=== PATIENT | female | born 1960 | race Caucasian/White ===

== ENCOUNTER 2020-02-27 17:13 | Emergency (ER) | payer OTHER ==
[~2020-02-27] VITALS: Ht 162.6 cm; Wt 64.4 kg
[2020-02-27 17:20] VITALS: BP_SYST 135
--- NOTE | 2020-02-27 17:20 | NUR ---
Patient to ER bed 07 to gown for evaluation. Side rails up.
--- NOTE | 2020-02-27 17:20 | NUR ---
CALL PLACED TO [facility] [phone] AND SPOKE WITH LEAD NURSE, I EXPLAINED TO HER THAT WE HAVE NO INFORMATION ON THIS PT AND IF I COULD GET REPORT, SHE STATES THAT PTS NURSE HAS GONE HOME FOR THE DAY. SHE HAD NO IDEA WHY THE PT WAS HERE BUT ASKED FOR FAX NUMBER AND SHE STATES SHE WILL FAX CHART.
--- NOTE | 2020-02-27 17:25 | NUR ---
Patient presented to ER for Medical clearance for [facility] admission. Patient A&Ox4, ambulatory to ER, dropped of at [facility] ER with personal belongings. Per [facility] report pat has aggressive behavior and hitting staff.
--- NOTE | 2020-02-27 17:30 | NUR ---
ER Dr. Desai at bedside examining patient.
[2020-02-27 17:48] LABS: BASOPHILS # (AUTO) 0.1 K/uL (0.0-0.2); BASOPHILS % (AUTO) 1.1 % (0.0-2.0); EOSINOPHILS # (AUTO) 0.4 K/uL (0.0-0.4); EOSINOPHILS % (AUTO) 3.5 % (0.0-4.0); HEMATOCRIT 37.6 % (36-48); HEMOGLOBIN 12.5 g/dL (12.0-16.0); LYMPHOCYTES # (AUTO) 2.1 K/uL (1.0-5.5); LYMPHOCYTES % (AUTO) 19.2 % (20.5-51.5); MEAN CORPUSCULAR HEMOGLOBIN 29 pg (27-31); MEAN CORPUSCULAR HGB CONC 33 % (32-36); MEAN CORPUSCULAR VOLUME 87 fL (79.0-98.0); MONOCYTES # (AUTO) 0.9 K/uL (0.0-1.0); MONOCYTES % (AUTO) 8.5 % (1.7-9.3); NEUTROPHILS # (AUTO) 7.5 K/uL (1.8-7.7); NEUTROPHILS % (AUTO) 67.7 % (40.0-70.0); PLATELET COUNT (AUTO) 300 K/uL (130-430); RED CELL DISTRIBUTION WIDTH 15.6 % (9.0-15.0)
--- NOTE | 2020-02-27 17:53 | NUR ---
Pt sitting in bed, no s/s of distress, cooperative with staff
[2020-02-27 18:03] LABS: ANION GAP 8 (5-15); CALCIUM 8.6 mg/dL (8.4-11.0); CHLORIDE 100 mmol/L (98-107); CREATININE 0.69 mg/dL (0.55-1.30); GLUCOSE 130 mg/dL (70-99); POTASSIUM 3.8 mmol/L (3.5-5.1); SODIUM SERUM 133 mmol/L (136-145); UREA NITROGEN, BLOOD 22 mg/dL (8-21)
[2020-02-27 18:04] LABS: GFR AFRICAN AMERICAN 112 mL/min (>90)
[2020-02-27 18:07] LABS: ALANINE AMINOTRANSFERASE 30 U/L (12-78); ALBUMIN 3.1 g/dL (3.4-4.8); ASPARTATE AMINOTRANSFERASE 17 U/L (10-37); CHOLESTEROL 175 mg/dL (<200); HDL CHOLESTEROL 40 mg/dL (>55); LDL CHOLESTEROL 96 mg/dL (<100); TOTAL BILIRUBIN 0.2 mg/dL (0.0-1.0); TRIGLYCERIDES 164 mg/dL (30-150)
[2020-02-27 18:11] LABS: ACETAMINOPHEN 1 ug/mL (1-30); ALCOHOL, BLOOD < 3 mg/dL (<10)
--- NOTE | 2020-02-27 18:16 | NUR ---
Patient to be transferred to [facility] . Is being transferred due to higher level of care. Receiving facility has accepting physician and available space. ER physician has signed transfer form. Patient or responsible democrat has agreed to transfer and signed form. Patient belongings inventoried and will be sent with patient. Copy of nursing notes, lab reports, EKG, Physicians Orders and X-rays to be sent with patient. Report called to Lori CASTLE at receiving facility. Receiving physician is Dr. Lopez. ambulance service has been called for transfer. ETA is 1 hour.
[2020-02-27 18:31] LABS: BILIRUBIN,URINE NEGATIVE (NEGATIVE); COLOR,URINE YELLOW (YELLOW); GLUCOSE,URINE NEGATIVE (NEGATIVE); KETONES,URINE NEGATIVE (NEGATIVE); LEUKOCYTE ESTERASE ,URINE 3+ (NEGATIVE); NITRITE, URINE NEGATIVE (NEGATIVE); PROTEIN URINE NEGATIVE (NEGATIVE); UROBILINOGEN,URINE 0.2 (0.2-1.0)
[2020-02-27 18:36] LABS: BLOOD, URINE TRACE (NEGATIVE)
[2020-02-27 18:37] LABS: CLARITY/URINE SLIGHTLY HAZY (CLEAR)
[2020-02-27 18:45] LABS: BARBITURATE, URINE NEGATIVE (NEG <=200); BENZODIAZEPINE, URINE POSITIVE (NEG <=150); CANNABINOID, URINE NEGATIVE (NEG <=50); COCAINE, URINE NEGATIVE (NEG <=150); METHAMPHETAMINES SCREEN,URINE NEGATIVE (NEG <=500); OPIATE, URINE NEGATIVE (NEG <=100); PHENCYCLIDINE SCREEN,URINE NEGATIVE (NEG <=25); UR TRICYCLIC ANTIDEPRESSANTS NEGATIVE (NEG <=300); URINE AMPHETAMINE NEGATIVE (NEG <=500); URINE METHADONE NEGATIVE (NEG <=200); URINE OXYCODONE SCREEN NEGATIVE (NEG <=100); URINE PROPOXYPHENE SCREEN NEGATIVE (NEG <=300)
[2020-02-27 18:46] LABS: BACTERIA,URINE FEW /HPF (None Seen); MUCUS,URINE None Seen /LPF (None Seen)
[2020-02-27 19:20] VITALS: BP_SYST 148
== END 2020-02-27 19:20 ==
LOC: SED 17:13 → STU 18:37 → UNDOADMIN 18:37 → STU 19:20
DX: S81.802A Unspecified open wound, left lower leg, initial encounter (principal); F20.9 Schizophrenia, unspecified; X58.XXXA Exposure to other specified factors, initial encounter; Y93.89 Activity, other specified; Y92.89 Other specified places as the place of occurrence of the external cause; Y99.8 Other external cause status
CPT/HCPCS: 36415; 80053; 80061; 80307; 81000; 83036; 85025; 86920; 87081; 87086; 99285; G0480; G0481; G0482; G0378

== ENCOUNTER 2020-03-12 17:45 | Inpatient (IN) | payer OTHER ==
[~2020-03-12] VITALS: Ht 162.6 cm; Wt 56.7 kg
[2020-03-12 17:45] VITALS: BP_SYST 136
--- NOTE | 2020-03-12 17:51 | NUR ---
CALL PLACED TO [facility] SPOKE WITH NETO, ASKED FOR REPORT. SHE STATES THAT PT IS NO LONGER APPROPRIATE FOR THEIR FACILITY. I EXPLAINED TO NETO THAT UNLESS SHE HAS A BED AT [facility], THAT SHE WOULD BE RETURNING TO THEIR FACILITY. NETO STATES THAT DR BAZZI THE PSYCHIATRIST WANTED HER TO COME TO OUR ER AND THAT IT WOULD HAVE TO BE CLEARED BY THEIR ADMISSION DIRECTOR FOR HER TO RETURN.
[2020-03-12] MEDS ORDERED: cefTRIAXone 1 GM IVPB PREMIX 50 ML IV ONE (18:30)
--- NOTE | 2020-03-12 18:30 | NUR ---
DR ANDREWS AT BEDSIDE TO ASSESS
[2020-03-12 19:24] LABS: BASOPHILS % (AUTO) 0.5 % (0.0-2.0); EOSINOPHILS # (AUTO) 0.4 K/uL (0.0-0.4); EOSINOPHILS % (AUTO) 4.4 % (0.0-4.0); HEMATOCRIT 37.9 % (36-48); HEMOGLOBIN 12.7 g/dL (12.0-16.0); LYMPHOCYTES # (AUTO) 2.1 K/uL (1.0-5.5); LYMPHOCYTES % (AUTO) 25.1 % (20.5-51.5); MEAN CORPUSCULAR HEMOGLOBIN 29 pg (27-31); MEAN CORPUSCULAR HGB CONC 34 % (32-36); MEAN CORPUSCULAR VOLUME 86 fL (79.0-98.0); MONOCYTES # (AUTO) 0.5 K/uL (0.0-1.0); MONOCYTES % (AUTO) 5.8 % (1.7-9.3); NEUTROPHILS # (AUTO) 5.4 K/uL (1.8-7.7); NEUTROPHILS % (AUTO) 64.2 % (40.0-70.0); PLATELET COUNT (AUTO) 258 K/uL (130-430); RED BLOOD CELL COUNT(AUTO) 4.41 MIL/uL (4.2-6.2); RED CELL DISTRIBUTION WIDTH 14.9 % (9.0-15.0); WHITE BLOOD COUNT (AUTO) 8.4 K/uL (4.8-10.8)
--- NOTE | 2020-03-12 19:26 | NUR ---
MEDICATED WITH ROCEPHIN. IV HL 20 GUAGE LT AC
[2020-03-12 19:31] LABS: CALCIUM 9.1 mg/dL (8.4-11.0); CREATININE 0.72 mg/dL (0.55-1.30); POTASSIUM 3.8 mmol/L (3.5-5.1)
--- NOTE | 2020-03-12 19:32 | NUR ---
ALERT, AGITATED, RESP UNLABORED, SKIN WARM AND DRY. COMMUNICATES FAST, DIFF TO UNDERSTAND, MANIC LIKE PRESENTATION. SHE HAS A LARGE WOUND TO HER RT CHIN/CALF WOUND APPEARS WITH GRANULATION, NO DRAINAGE OR ODOR. Addendum: 03/12/20 at 2112 by SDEDFS WOUND TO HER RT LOWER LEG,ORR, GRANULATION OBSERVED, NO BLEEDING OR DRAINAGE
[2020-03-12 19:37] LABS: ALBUMIN 3.4 g/dL (3.4-4.8); TOTAL BILIRUBIN 0.3 mg/dL (0.0-1.0)
--- NOTE | 2020-03-12 19:53 | NUR ---
DR FELIX IN TO ASSESS
[2020-03-12] MEDS ORDERED: HALOPERIDOL LACTATE 5 MG/ML VIAL IM ONE (20:15)
--- NOTE | 2020-03-12 20:31 | NUR ---
MEDICATED FOR AGITATION. TOLERATED WELL.
[2020-03-12] MEDS ORDERED: BACITRACIN 1 GM OINT TP ONE (21:15)
[2020-03-12 21:49] LABS: BILIRUBIN,URINE NEGATIVE (NEGATIVE); COLOR,URINE YELLOW (YELLOW); GLUCOSE,URINE NEGATIVE (NEGATIVE); KETONES,URINE NEGATIVE (NEGATIVE); LEUKOCYTE ESTERASE ,URINE 1+ (NEGATIVE); NITRITE, URINE NEGATIVE (NEGATIVE); PH,URINE 5.5 (5.0-8.0); PROTEIN URINE NEGATIVE (NEGATIVE); UROBILINOGEN,URINE 0.2 (0.2-1.0)
[2020-03-12 22:07] LABS: BLOOD, URINE TRACE (NEGATIVE)
[2020-03-12 22:08] LABS: CLARITY/URINE HAZY (CLEAR)
[2020-03-12 22:11] LABS: BACTERIA,URINE FEW /HPF (None Seen); RBC,URINE 0-3 /HPF (0-3); WBC,URINE 50-80 /HPF (0-3)
[2020-03-12 22:12] LABS: MUCUS,URINE None Seen /LPF (None Seen)
[2020-03-12] MEDS ORDERED: VANCOMYCIN HCL 1,000 MG in NS 250 ML IV ONE (22:30)
[2020-03-12 22:42] LABS: BENZODIAZEPINE, URINE POSITIVE (NEG <=150); OPIATE, URINE POSITIVE (NEG <=100); UR TRICYCLIC ANTIDEPRESSANTS POSITIVE (NEG <=300)
[2020-03-12 22:43] LABS: BARBITURATE, URINE NEGATIVE (NEG <=200); CANNABINOID, URINE NEGATIVE (NEG <=50); COCAINE, URINE NEGATIVE (NEG <=150); METHAMPHETAMINES SCREEN,URINE NEGATIVE (NEG <=500); PHENCYCLIDINE SCREEN,URINE NEGATIVE (NEG <=25); URINE AMPHETAMINE NEGATIVE (NEG <=500); URINE METHADONE NEGATIVE (NEG <=200); URINE OXYCODONE SCREEN NEGATIVE (NEG <=100); URINE PROPOXYPHENE SCREEN NEGATIVE (NEG <=300)
[2020-03-12] MEDS ORDERED: ceFAZolin SODIUM 1 GM in D5W 50 ML IV ONE (22:45)
--- NOTE | 2020-03-12 23:02 | NUR ---
DR SAMUELS IN TO ASSESS. PT CALM, EASILY AROUSED, RESP UNLABORED VANCOMYCIN IVPB INFUSION STARTED
[2020-03-12] MEDS ORDERED: VANCOMYCIN HCL 1000 MG/VIAL IV ONE (23:07)
--- NOTE | 2020-03-12 23:21 | NUR ---
Patient will be admitted to care of [facility]. Admitted to M/S unit. Will go to room 104A. Belongings list completed. Complete and up to date summary report printed. SBAR report to be given at bedside with opportunity for questions.
--- NOTE | 2020-03-12 23:30 | NUR ---
INITIAL NOTES PATIENT IS LAYING IN BED AND STABLE. NO S/S OF RESPIRATORY DISTRESS NOTED. CALL LIGHT IN REACH. BED IS LOCKED, ALARMED, AND AT THE LOWEST POSITION. FALL, SAFETY, ASPIRATION, AND RESPIRATORY PRECAUTIONS WILL BE IN PLACE THROUGHOUT THE SHIFT. PLAN OF CARE IS DISCUSSED WITH PATIENT.
[2020-03-12 23:32] VITALS: BP_SYST 119
[2020-03-12] MEDS ORDERED: NACL 0.9% 1,000 ML IV ONE (23:45)
[2020-03-12] MEDS ORDERED: traMADol HCL HCL 50 MG TABLET (ULTRAM) PO PRN ×2 (23:45)
[2020-03-12] MEDS ORDERED: ACETAMINOPHEN 325 MG TABLET PO PRN (23:45)
[2020-03-12] MEDS ORDERED: ONDANSETRON HCL 4 MG/2 ML VIAL IVP PRN (23:45)
[2020-03-12] MEDS: SILVER SULFADIAZINE 1%, 400 GM 400 GM CREAM.GM. TP SCH (23:45)
[2020-03-13] MEDS ORDERED: TEMAZEPAM 15 MG CAPSULE PO PRN
--- NOTE | 2020-03-13 00:25 | NUR ---
PATIENT AMBULATED TO THE RESTROOM. PATIENT TOLERATED WELL. PATIENT REPOSITION IN BED FOR COMFORT. NO S/S OF RESPIRATORY DISTRESS NOTED. CALL LIGHT IN REACH.
--- NOTE | 2020-03-13 00:30 | NUR ---
WOUND CARE PERFORMED AT THIS TIME. PATIENT TOLERATED WELL. NO S/S OF RESPIRATORY DISTRESS NOTED. CALL LIGHT IN REACH.
[2020-03-13 00:52] VITALS: BP_SYST 119
[2020-03-13] MEDS ORDERED: ceFAZolin SODIUM 1 GM VIAL ONE (01:20)
--- NOTE | 2020-03-13 02:25 | NUR ---
PATIENT AMBULATED TO THE RESTROOM. PATIENT TOLERATED WELL. PATIENT REPOSITION IN BED FOR COMFORT. NO S/S OF RESPIRATORY DISTRESS NOTED. CALL LIGHT IN REACH.
--- NOTE | 2020-03-13 04:02 | NUR ---
PATIENT IS SLEEPING IN BED AND STABLE. NO S/S OF RESPIRATORY DISTRESS NOTED. CALL LIGHT IN REACH.
--- NOTE | 2020-03-13 04:07 | NUR ---
CONSULTATION PAGED/CALLED Reason for Consultation: WOUND INFECTION Person Who was Notified: MAGAN Consulting Physician: Apron Trimmer Specialty: Ordering Physician:
--- NOTE | 2020-03-13 04:44 | NUR ---
CONSULT: CONSULT CALLED FOR DR. DURAN I SPOKE WITH MAGANLEO JAY REASON FOR CONSULT: DEPRESSION REQUESTING CONSULT: DR. SAMUELS TAMPER OPERATOR PHONE NUMBER: [phone]
--- NOTE | 2020-03-13 06:10 | NUR ---
CLOSING NOTES PATIENT IS STABLE AND LAYING IN BED. NO S/S OF RESPIRATORY DISTRESS NOTED. CALL LIGHT IN REACH. BED IS LOCKED, ALARMED, AND AT THE LOWEST POSITION. FALL, SAFETY, ASPIRATION, AND RESPIRATORY PRECAUTIONS HAS BEEN IN PLACE THROUGHOUT THE SHIFT. WILL CONTINUE TO MONITOR UNTIL REPORT IS ENDORSED TO AM NURSE BY BEDSIDE.
--- NOTE | 2020-03-13 07:20 | NUR ---
AM ROUNDS: PATIENT ON THE BED. IV FLUIDS RUNNING AT LEFT AC,DRESSING CLEAN AND DRY. WITH RIGHT KNEE WOUND,DRESSING INTACT. CALL LIGHT WITH IN REACH. BED ,LOCKED AT LOWEST POSITION. CONTINUE TO MONITOR.
--- NOTE | 2020-03-13 08:17 | NUR ---
Nutrition Update Daniel Scale 18 noted. Pt admitted for cellulitis Diet: Regular BMI: 21.6 kg/m2 RD to follow per nutrition care standards.
[2020-03-13 08:30] VITALS: BP_SYST 145
--- NOTE | 2020-03-13 09:00 | NUR ---
IV OUT: ACCIDENTAL PULLED OUT BY THE PATIENT. IV RE SITED USING G#20,CONTINUE IV FLUIDS AND IV ANTIBIOTIC GIVEN ORDERED.
[2020-03-13] MEDS: CEFAZOLIN 1 GM IVPB PREMIX 50 ML IV SCH ×2 (09:08→16:52)
[2020-03-13] MEDS: ENOXAPARIN SODIUM 40 MG/0.4 ML SYRINGE SUBCUT SCH (09:14)
[2020-03-13] MEDS: SILVER SULFADIAZINE 1%, 400 GM 400 GM CREAM.GM. TP SCH ×2 (09:16→21:06)
--- NOTE | 2020-03-13 11:00 | NUR ---
PSYCHE ROUNDS: PATIENT SEEN BY DR VICKERS WITH ORDERS,MAY GIVE ATIVAN PO,FIRST DOSE PRN FOR AGITATION/ANXIETY.
[2020-03-13] MEDS ORDERED: LORazepam 1 MG TABLET PO ONE (11:15)
--- NOTE | 2020-03-13 11:30 | NUR ---
WOUND CARE: CLEANSE WITH NS,PAT DRY.SILVADENE CREAM APPLIED TO WOUND BED,SURE PREP TO MYA WOUND AREA,COVERED WITH FOAM DRESSING.WRAPPED WITH KERLIX.
--- NOTE | 2020-03-13 12:00 | NUR ---
ID NEW ORDER: PATIENT SEEN BY DR ORANTES IN THE ROOM. WOUND RIGHT LOWER LEG SEEN BY ID,WITH ORDERS GIVE DIFLUCAN IVPB SCHEDULED.
[2020-03-13 13:13] VITALS: BP_SYST 157
[2020-03-13] MEDS: FLUCONAZOLE 100 mg/ NS 50 ML IV SCH (13:13)
[2020-03-13] MEDS: QUEtiapine FUMARATE 100 MG TABLET PO SCH ×2 (15:05→21:05)
--- NOTE | 2020-03-13 15:40 | NUR ---
Wound Evaluation: Wound Consult received from Dr. Adame. Thank you Dr. Adame for the consult. Patient received in a Radha bed, awake, alert, confused. Patient is unable to turn in bed independently. Daniel score is a 21. Past Medical History: Diabetes Mellitus, Schizoaffective disorder, Cellulitis, Schizophrenia. Recent labs: WBC 8.4, RBC 4.41, hemoglobin 12.7, hematocrit 37.9, ESR 33, BUN 22, creatinine 0.72, GFR 88, glucose 103. Microbiology: Blood culture results x2 in progress. Urine culture results in progress. MRSA screen results in progress. Leg wound culture results in progress. Intrinsic factors that delay wound healing: Diabetes Mellitus. Extrinsic factors that delay wound healing: Decreased mobility. Wound Assessment: 1. Right Anterior Wells: Venous insufficiency ulcer, present on admission. Wound bed has 85% pink tissue, 15% yellow tissue. No odor, scant yellow purulent drainage. Periwound intact. Surrounding tissue is erythematous, has non-pitting edema, and has calor. Wound measures 3.9 cm x 1.5 cm. Recommend: Cleanse wound with normal Saline. Apply SurePrep to noel-wound. Apply Venelex ointment to wound bed. Cover with 6x6 foam dressing in diagonal fashion. Perform wound care daily, and as needed for dressing soiling or dislodgment. 2. Right Anterior Wells, Inferior to Site 1: Venous insufficiency ulcer, present on admission. Wound bed has 50% yellow tissue, 50% pink tissue. No odor, no drainage. Periwound intact. Surrounding tissue is erythematous, has non-pitting edema, and has calor. Wound measures 9.5 cm x 3.4 cm. Recommend: Cleanse wounds with normal Saline. Apply SurePrep to noel-wounds. Apply Silver Sulfadiazine ointment to wound beds. Cover with non-adhesive 4x4 foam dressings. Wrap with tavo wrap. Perform wound care daily, and as needed for dressing soiling or dislodgment. Also recommend: Encourage and assist patient as needed with repositioning every two hours with pillow support, and off-load pressure areas with pillows for pressure re-distribution. Offload, elevate and float heel with pillows. Perform skin care and monitor skin integrity q shift. Use moisture barrier cream on buttocks, and other moisture susceptible areas qid and as needed for soiling.
--- NOTE | 2020-03-13 16:02 | NUR ---
DC Planning: Called [facility], # [phone], nurse is busy with other pt. she will call back to give further dcp assessment info.
--- NOTE | 2020-03-13 16:55 | NUR ---
RN ROUNDS: PATIENT SLEEPING DURING ROUNDS.NO PROBLEM.
[2020-03-13 17:57] VITALS: BP_SYST 119
--- NOTE | 2020-03-13 18:30 | NUR ---
END OF SHIFT: PATIENT ATE DINNER. IV FLUIDS RUNNING AT LEFT FOREARM INTACT.CALL LIGHT WITH IN REACH. BED LOCKED AT LOWEST POSITION. NOT IN ANY DISTRESS.
--- NOTE | 2020-03-13 19:30 | NUR ---
Opening notes Received report. Patient is walking around in room. Steady gait noted. No signs of distress noted. Breathing even and unlabored. IV patent and intact, infusing fluids. Provided patient with chocolate pudding per request. No other needs. Encouraged patient to call for help if assistance needed. Call light within reach. Safety precautions in place.
[2020-03-13 20:37] VITALS: BP_SYST 148
[2020-03-13] MEDS: VANCOMYCIN HCL 1,000 MG in NS 250 ML IV SCH (21:05)
[2020-03-13] MEDS: traZODone HCL 50 MG TABLET (DESYREL) PO SCH (21:05)
--- NOTE | 2020-03-13 21:23 | NUR ---
Medications given. Educated the action and side effects of medications. Patient verbalized understanding and tolerated well. Provided patient with apple juice. No other needs at this time. Patient walks around room at times, steady gait noted. Patient provided self care. Call light within reach. Safety precautions in place.
--- NOTE | 2020-03-13 22:27 | NUR ---
RN rounds Patient is asleep at this time. No signs of distress noted. Breathing even and unlabored. IV ABX infusing well. No needs. Call light with the patient. Safety precautions in place.
[2020-03-14] MEDS: CEFAZOLIN 1 GM IVPB PREMIX 50 ML IV SCH ×3 (00:12→17:12)
[2020-03-14] MEDS: LORazepam 1 MG TABLET PO PRN ×2 (00:13→23:10)
[2020-03-14 00:27] VITALS: BP_SYST 125
--- NOTE | 2020-03-14 00:33 | NUR ---
RN rounds Patient resting in bed. No signs of distress noted. Breathing even and unlabored. IV ABX infusing. Educated the action and side effects of medications. Provided patient with thelma jackson and kyugn per patient request. No other needs at this time. Call light with the patient. Safety precautions in place.
--- NOTE | 2020-03-14 02:05 | NUR ---
RN rounds Patient in and out of sleep. Patient ambulates to bathroom. No signs of distress noted. Breathing even and unlabored. No needs. Call light with the patient. Safety precautions in place.
--- NOTE | 2020-03-14 04:16 | NUR ---
RN rounds Patient is sleeping. No signs of distress noted. Breathing even and unlabored. No needs. Call light with the patient. Safety precautions in place.
[2020-03-14 06:20] LABS: CALCIUM 8.9 mg/dL (8.4-11.0); CREATININE 0.63 mg/dL (0.55-1.30); POTASSIUM 4.1 mmol/L (3.5-5.1)
--- NOTE | 2020-03-14 06:21 | NUR ---
Closing notes Patient is resting in bed. No signs of distress noted. Breathing even and unlabored. IV patent and intact, no signs of infiltration noted. All needs met throughout the shift. Dr. Marie at bedside and assessed patient. New orders input by MD. Call light with the patient. Safety precautions in place. Will endorse care to day shift RN.
[2020-03-14 06:37] LABS: BASOPHILS % (AUTO) 0.7 % (0.0-2.0); EOSINOPHILS # (AUTO) 0.4 K/uL (0.0-0.4); EOSINOPHILS % (AUTO) 7.2 % (0.0-4.0); HEMOGLOBIN 12.5 g/dL (12.0-16.0); LYMPHOCYTES # (AUTO) 1.8 K/uL (1.0-5.5); LYMPHOCYTES % (AUTO) 33.7 % (20.5-51.5); MEAN CORPUSCULAR HEMOGLOBIN 29 pg (27-31); MEAN CORPUSCULAR HGB CONC 34 % (32-36); MEAN CORPUSCULAR VOLUME 87 fL (79.0-98.0); MONOCYTES # (AUTO) 0.5 K/uL (0.0-1.0); MONOCYTES % (AUTO) 10.4 % (1.7-9.3); NEUTROPHILS # (AUTO) 2.5 K/uL (1.8-7.7); PLATELET COUNT (AUTO) 237 K/uL (130-430); RED BLOOD CELL COUNT(AUTO) 4.26 MIL/uL (4.2-6.2); RED CELL DISTRIBUTION WIDTH 15.1 % (9.0-15.0)
[2020-03-14 06:47] LABS: WHITE BLOOD COUNT (AUTO) 5.2 K/uL (4.8-10.8)
[2020-03-14] MEDS: QUEtiapine FUMARATE 100 MG TABLET PO SCH ×3 (08:37→20:34)
[2020-03-14] MEDS: VALPROIC ACID 250 MG CAPSULE (DEPAKENE) PO SCH ×2 (08:37→20:34)
[2020-03-14] MEDS: ENOXAPARIN SODIUM 40 MG/0.4 ML SYRINGE SUBCUT SCH (08:39)
[2020-03-14] MEDS: SILVER SULFADIAZINE 1%, 400 GM 400 GM CREAM.GM. TP SCH ×2 (08:39→21:00)
[2020-03-14 08:40] VITALS: BP_SYST 131
--- NOTE | 2020-03-14 08:40 | NUR ---
Routine Patient sitting on side of bed with no distress noted; denies any pain at this time. Scheduled medications given per order. Patient stable at this time.
--- NOTE | 2020-03-14 08:50 | NUR ---
Wound care Wound on right lower extremity cleansed with NS, covered with foam dressing and secured with tavo wrap. Patient tolerated well.
--- NOTE | 2020-03-14 10:20 | NUR ---
Routine Patient sitting on side of bed with no distress noted. Patient denies any pain. Patient stable at this time.
[2020-03-14] MEDS ORDERED: CHOLECALCIFEROL (VITAMIN D3) 2,000 UNIT TABLET PO ONE (11:00)
[2020-03-14] MEDS ORDERED: MULTIVITS,CA,MINERALS/IRON/FA 1 TABLET PO ONE (11:00)
--- NOTE | 2020-03-14 11:29 | NUR ---
Dietitian Recommendations * Recommend continue regular diet * Recommend provide César BID for pt to promote wound healing. César BID provides: 5 g protein, 160 kcals (unflavored) Please see Nutrition Assessment for details. KAT POLANCO
--- NOTE | 2020-03-14 12:00 | NUR ---
Wound Re-Evaluation: Wound Consult received from Dr. Adame. Thank you Dr. Adame for the consult. Patient received in a Radha bed, awake, alert, confused. Patient is unable to turn in bed independently. Daniel score is a 17. Past Medical History: Diabetes Mellitus, Schizoaffective disorder, Cellulitis, Schizophrenia. Microbiology: Blood culture results x2 in progress. Urine culture results in progress. Right Lower Extremity Wound culture results in progress. MRSA screen results negative. Leg wound culture results in progress. Intrinsic factors that delay wound healing: Diabetes Mellitus. Extrinsic factors that delay wound healing: Decreased mobility. Wound Assessment: 1. Right Anterior Wells: Venous insufficiency ulcer, present on admission. Wound bed has 90% pink tissue, 10% red tissue. No odor, no drainage. Periwound intact. Surrounding tissue is erythematous, has non-pitting edema, and has calor. Wound measures 3.7 cm x 1.3 cm. Recommend continue: Cleanse wound with normal Saline. Apply SurePrep to sara-wound. Apply Venelex ointment to wound bed. Cover with 6x6 foam dressing in diagonal fashion. Perform wound care daily, and as needed for dressing soiling or dislodgment. 2. Right Anterior Wells, Inferior to Site 1: Venous insufficiency ulcer, present on admission. Wound bed has 50% yellow tissue, 50% pink tissue. No odor, no drainage. Periwound intact. Surrounding tissue is erythematous, has non-pitting edema, and has calor. Wound measures 9.5 cm x 3.4 cm. Recommend continue: Cleanse wounds with normal Saline. Apply SurePrep to sara-wounds. Apply Silver Sulfadiazine ointment to wound beds. Cover with non-adhesive 4x4 foam dressings. Wrap with tavo wrap. Perform wound care daily, and as needed for dressing soiling or dislodgment. 3. Right Posterior Distal Calf: Chronic wound, present on admission. Wound bed has 100% brown scab. No odor, no drainage. Dry, stable. Sara-wound intact. Wound measures 1.2 cm x 1.2 cm. Recommend: No dressing needed. Continue to monitor site q shift. Also recommend continue: Encourage and assist patient as needed with repositioning every two hours with pillow support, and off-load pressure areas with pillows for pressure re-distribution. Offload, elevate and float heel with pillows. Perform skin care and monitor skin integrity q shift. Use moisture barrier cream on buttocks, and other moisture susceptible areas qid and as needed for soiling.
--- NOTE | 2020-03-14 12:15 | NUR ---
Routine Patient resting in bed with no distress noted. Ordered medications given. Patient stable.
[2020-03-14] MEDS: FLUCONAZOLE 100 mg/ NS 50 ML IV SCH (12:26)
--- NOTE | 2020-03-14 12:26 | NUR ---
Routine Scheduled IV abx given per order. Patient eating lunch while sitting on side of bed. Patient stable.
[2020-03-14 12:38] VITALS: BP_SYST 124
--- NOTE | 2020-03-14 14:28 | NUR ---
DC Planning: called [facility] # [phone], per Anusha, nurse on duty : the pt is a industrial engineer resident for many years. She has no personnel analyst, no family or conservator listed. The pt can make won decision. Informed her the plan to discharge pt back during weekend for wound care and abx. Anusha confirmed the facility can do IV ABX and wd care as needed. >> I requested TIN Watts to get the dcp order from dr. Adame. .
--- NOTE | 2020-03-14 15:17 | NUR ---
Routine Patient ambulating in room. Scheduled medication given per order. Patient stable.
--- NOTE | 2020-03-14 17:15 | NUR ---
Routine Scheduled IV abx given per order. Patient resting comfortably in bed, watching TV. Patient stable.
[2020-03-14 17:26] VITALS: BP_SYST 122
--- NOTE | 2020-03-14 18:55 | NUR ---
Routine Patient ambulating in room. Patient has been stable throughout shift.
--- NOTE | 2020-03-14 20:00 | NUR ---
Opening notes Pt AAOx3, VSS, afebrile. Pt denies pain. L. leg dressing C/D/I. Pt ambulates within her room, steady gait. Food/snacks given per pt request. Call light within reach. Bed maintained low, locked, siderails up x2. To monitor. Addendum: 03/15/20 at 0639 by Angy Antony RN Right leg dressing C/D/I.
[2020-03-14] MEDS: traZODone HCL 50 MG TABLET (DESYREL) PO SCH (20:35)
[2020-03-14] MEDS: VANCOMYCIN HCL 1,000 MG in NS 250 ML IV SCH (21:00)
[2020-03-14 21:49] VITALS: BP_SYST 136
--- NOTE | 2020-03-14 22:15 | NUR ---
Rounds Pt awake, restless, keeps walking by the door and asking for things. Ativan 1mg PO administered as needed. Pt provided bedtime snacks and assisted with gown. Pt thankful. Pt near nursing station for safety. Will continue to monitor.
--- NOTE | 2020-03-15 00:25 | NUR ---
Rounds Pt asleep, easily awakens, no s/s distress noted. IV antibiotic infusing at ordered rate L. FA clear and patent. Safety maintained. Will continue to monitor.
[2020-03-15 00:29] VITALS: BP_SYST 125
[2020-03-15] MEDS: CEFAZOLIN 1 GM IVPB PREMIX 50 ML IV SCH ×2 (00:35→08:16)
--- NOTE | 2020-03-15 02:20 | NUR ---
Rounds Pt asleep, no s/s distress or discomfort noted. Call light within reach. To monitor.
--- NOTE | 2020-03-15 04:40 | NUR ---
Rounds Pt asleep, respirations even and unlabored. Bed maintained low, locked, siderails up x2. Call light within reach. To monitor.
--- NOTE | 2020-03-15 06:20 | NUR ---
Closing notes Pt alert, awake, no s/s distress noted. Pt requested some snacks provided. IV TKO L.FA 20G no s/s infiltration. All needs met throughout the night. Call light within reach. Safety maintained. Bed low, locked, siderails up x2. To endorse to AM nurse. Addendum: 03/15/20 at 0638 by Angy Antony RN Dressing to right lower leg clean, dry intact.
--- NOTE | 2020-03-15 07:35 | NUR ---
INITIAL NOTE PT AWAKE, AMBULATING TO DOOR AND BACK TO BED. PT AMBULATES WITH STEADY GAIT. IV SALINE LOCKED. CALL LIGHT WITHIN REACH, BED IN LOW AND LOCKED POSITION.
[2020-03-15 08:00] VITALS: BP_SYST 146
[2020-03-15] MEDS: MULTIVITS,CA,MINERALS/IRON/FA 1 TABLET PO SCH (08:17)
[2020-03-15] MEDS: VALPROIC ACID 250 MG CAPSULE (DEPAKENE) PO SCH ×2 (08:17→21:49)
[2020-03-15] MEDS: QUEtiapine FUMARATE 100 MG TABLET PO SCH ×3 (08:17→21:48)
[2020-03-15] MEDS: CHOLECALCIFEROL (VITAMIN D3) 2,000 UNIT TABLET PO SCH (08:17)
[2020-03-15] MEDS: SILVER SULFADIAZINE 1%, 400 GM 400 GM CREAM.GM. TP SCH ×2 (08:17→21:00)
[2020-03-15] MEDS: ENOXAPARIN SODIUM 40 MG/0.4 ML SYRINGE SUBCUT SCH (08:18)
--- NOTE | 2020-03-15 09:30 | NUR ---
RN ROUNDS PT RESTING IN BED, NO ACUTE DISTRESS NOTED, BREATHING EVEN AND UNLABORED, IV ANTIBIOTICS INFUSING WELL.
[2020-03-15] MEDS: FLUCONAZOLE 100 mg/ NS 50 ML IV SCH (11:43)
--- NOTE | 2020-03-15 12:11 | NUR ---
REFUSED VITAL SIGNS PT RESTING IN BED, REFUSING VITAL SIGNS TO BE TAKEN AT THIS TIME. WILL REATTEMPT LATER
--- NOTE | 2020-03-15 14:11 | NUR ---
RN ROUNDS PT SITTING AT BEDSIDE. NO CHANGE IN ASSESSMENT. WILL CONTINUE TO MONITOR.
--- NOTE | 2020-03-15 15:58 | NUR ---
WOUND CARE EDUCATED PT ON PURPOSE OF WOUND CARE. PT VERBALIZED UNDERSTANDING. WOUND CARE DONE. PT DENIES ANY PAIN DURING OR AFTER WOUND CARE. REFER TO [facility] FOR TREATMENT.
[2020-03-15] MEDS ORDERED: INSULIN REGULAR, HUMAN 100 UNITS/ML, 10 ML VIAL (humuLIN R) SUBCUT PRN (16:00)
[2020-03-15] MEDS ORDERED: DEXTROSE 50% JECT 50 ML DISP.SYRIN IVP PRN (16:00)
[2020-03-15 16:10] VITALS: BP_SYST 138
--- NOTE | 2020-03-15 16:18 | NUR ---
CONSULTATION PAGED/CALLED Reason for Consultation: [] LEG ULCERATION Person Who was Notified: [] HUGO Consulting Physician: [] DR Mu BAUTISTA Police Officer Crime Prevention Specialty: [] GEN SURGEON Ordering Physician: [] DR SAMUELS
[2020-03-15] MEDS: cefTRIAXone 1 GM in D5W 50 ML IV SCH (16:41)
--- NOTE | 2020-03-15 18:03 | NUR ---
DR. BAUTISTA SPOKE WITH MD VIA PHONE, INFORMED MD THAT PT HAS WOUND ON RIGHT ORR, WOUND CARE TREATMENT WITH SILVER SULFADIAZINE. MD TO SEE PT TOMORROW. VERIFIED WITH READ BACK.
--- NOTE | 2020-03-15 18:52 | NUR ---
CLOSING NOTE PT AWAKE, AMBULATING TO DOOR AND BACK TO BED. PT AMBULATES WITH STEADY GAIT. IV SALINE LOCKED. CALL LIGHT WITHIN REACH, BED IN LOW AND LOCKED POSITION. ALL NEEDS MET THROUGHOUT SHIFT. WILL CONTINUE TO MONITOR UNTIL PT CARE IS ENDORSED TO SYSTEM SAFETY MANAGER RN.
--- NOTE | 2020-03-15 19:30 | NUR ---
OPENING NOTES RECEIVED SBAR REPORT FROM DAY SHIFT RN. PT AWAKE, ALERT & ORIENTED X 3. PT RESTING IN BED. PT AMBULATES WITH STEADY GAIT. IV SALINE LOCKED. CALL LIGHT WITHIN REACH, BED IN LOW AND LOCKED POSITION. CLOSE TO NURSING STATION. SAFETY AND CONTACT PRECAUTIONS IN PLACE. WILL CONTINUE TO MONITOR.
[2020-03-15 20:00] VITALS: BP_SYST 145
--- NOTE | 2020-03-15 20:40 | NUR ---
RECEIVED CRITICAL LABS RECEIVED CRITICAL LABS. PAGED DR. ARREOLA
--- NOTE | 2020-03-15 20:46 | NUR ---
SPOKE TO DR. ARREOLA SPOKE TO DR. ARREOLA REGARDING PT CRITICAL LABS. PT IS PLACED CONTACT ISOLATION.
[2020-03-15] MEDS ORDERED: VANCOMYCIN HCL 1,000 MG in NS 250 ML IV SCH (21:00)
[2020-03-15] MEDS: traZODone HCL 50 MG TABLET (DESYREL) PO SCH (21:48)
--- NOTE | 2020-03-15 21:48 | NUR ---
MEDICATION PASS SCHEDULED MEDICATIONS ADMINISTERED ORDERED. DISCUSSED MEDICATIONS ACTION AND POTENTIAL SIDE EFFECTS. ACCU-CHECK, BLOOD SUGAR OF 99. NO INSULIN COVERAGE PER SLIDING SCALE AT THIS TIME. PT DENIES ANY PAIN. BREATHING EVEN AND UNLABORED TO ROOM AIR. SAFETY AND CONTACT PRECAUTIONS IN PLACE. WILL CONTINUE TO MONITOR.
[2020-03-15] MEDS: LORazepam 1 MG TABLET PO PRN (23:01)
--- NOTE | 2020-03-15 23:05 | NUR ---
RN ROUNDS PT RESTING IN BED. BREATHING UNLABORED TO ROOM AIR. NO SIGNS AND SYMPTOMS OF ACUTE DISTRESS NOTED. PT AMBULATE STEADY. CALL LIGHT WITHIN REACH. BED LOCKED IN LOW, SIDE RAILS X2. SAFETY AND CONTACT PRECAUTIONS IN PLACE. WILL CONTINUE TO MONITOR.
[2020-03-16 00:55] VITALS: BP_SYST 104
--- NOTE | 2020-03-16 01:14 | NUR ---
RESTING PT RESTING IN BED. BREATHING UNLABORED TO ROOM AIR. NO SIGNS AND SYMPTOMS OF ACUTE DISTRESS NOTED. PT AMBULATE STEADY. CALL LIGHT WITHIN REACH. BED LOCKED IN LOW, SIDE RAILS X2. SAFETY AND CONTACT PRECAUTIONS IN PLACE. WILL CONTINUE TO MONITOR.
--- NOTE | 2020-03-16 03:30 | NUR ---
RN ROUNDS PT AWAKE, WALKING AROUND IN PT ROOM. PT AMBULATES STEADY. NO S/S OF ACUTE DISTRESS NOTED. PT GEN ANY PAIN AT THIS TIME. BREATHING EVEN AND UNLABORED TO ROOM AIR. CALL LIGHT WITHIN REACH. CLOSE TO NURSING STATION. SAFETY AND CONTACT PRECAUTIONS MAINTAINED. WILL CONTINUE TO MONITOR.
--- NOTE | 2020-03-16 05:25 | NUR ---
RN ROUNDS PT RESTING IN BED. NO S/S OF ACUTE DISTRESS NOTED. BREATHING EVEN AND UNLABORED TO ROOM AIR. CALL LIGHT WITHIN REACH. CLOSE TO NURSING STATION. SAFETY AND CONTACT PRECAUTIONS MAINTAINED. WILL CONTINUE TO MONITOR.
--- NOTE | 2020-03-16 06:28 | NUR ---
CLOSING NOTES PT RESTING IN BED. BLOOD SUGAR OF 107. NO INSULIN COVERAGE PER SLIDING SCALE AT THIS TIME. PT DENIES ANY PAIN AT THIS TIME. BREATHING EVEN AND UNLABORED TO ROOM AIR. IV SALINE LOCKED. CALL LIGHT WITHIN REACH, BED IN LOW AND LOCKED POSITION. CLOSE TO NURSING STATION. SAFETY AND CONTACT PRECAUTIONS IN PLACE. WILL CONTINUE TO MONITOR UNTIL ENDORSE TO DAY SHIFT RN.
[2020-03-16 08:00] VITALS: BP_SYST 127
[2020-03-16] MEDS: SILVER SULFADIAZINE 1%, 400 GM 400 GM CREAM.GM. TP SCH ×2 (08:55→20:54)
[2020-03-16] MEDS: VALPROIC ACID 250 MG CAPSULE (DEPAKENE) PO SCH ×2 (08:56→20:53)
[2020-03-16] MEDS: MULTIVITS,CA,MINERALS/IRON/FA 1 TABLET PO SCH (08:56)
[2020-03-16] MEDS: CHOLECALCIFEROL (VITAMIN D3) 2,000 UNIT TABLET PO SCH (08:56)
[2020-03-16] MEDS: QUEtiapine FUMARATE 100 MG TABLET PO SCH ×3 (08:56→20:53)
[2020-03-16] MEDS: ENOXAPARIN SODIUM 40 MG/0.4 ML SYRINGE SUBCUT SCH (08:59)
--- NOTE | 2020-03-16 09:30 | NUR ---
RN ROUNDS MORNING MEDICATIONS ADMINISTERED, PT COOPERATIVE AND FOLLOWING COMMANDS. WILL CONTINUE TO MONITOR.
[2020-03-16] MEDS: FLUCONAZOLE 100 mg/ NS 50 ML IV SCH (11:23)
--- NOTE | 2020-03-16 11:30 | NUR ---
RN ROUNDS PT AMBULATING INSIDE ROOM. PT KEEPING TO SELF, WITH MINIMAL OUTBURST. WILL CONTINUE TO MONITOR.
[2020-03-16 12:14] VITALS: BP_SYST 125
--- NOTE | 2020-03-16 13:00 | NUR ---
WOUND CARE PT REQUESTING TO HAVE WOUND CARE DONE. JASON CASTLE PERFORMED WOUND CARE ON PT. PER RN, PT TOLERATED WELL, COOPERATIVE AND FOLLOWED DIRECTIONS. REFER TO [facility] FOR TREATMENT.
--- NOTE | 2020-03-16 15:00 | NUR ---
RN ROUNDS SCHEDULED MEDICATIONS ADMINISTERED. PT COOPERATIVE, AND TOOK MEDICATIONS. PT AMBULATING INSIDE ROOM.
--- NOTE | 2020-03-16 15:10 | NUR ---
DR. BAUTISTA SPOKE WITH MD AT NURSE STATION, INFORMED MD THAT PT HAS SCHIZOAFFECTIVE DISORDER AND CAN BE SELECTIVE OF WHO SHE SPEAKS WITH. SHOWED MD WOUND PICTURES. MD TO CONTINUE CURRENT PLAN OF WOUND TREATMENT AND RECOMMEND WOUND VAC FOR PT. VERIFIED WITH READ BACK.
[2020-03-16 16:15] VITALS: BP_SYST 126
[2020-03-16] MEDS: cefTRIAXone 1 GM in D5W 50 ML IV SCH (17:01)
--- NOTE | 2020-03-16 17:15 | NUR ---
RN ROUNDS SCHEDULED MEDICATIONS ADMINISTERED. PT WOKE UP FROM NAP TALKING TO SELF. REORIENTED PT. PT COOPERATIVE AND ALLOWED FOR BSG TO BE TAKEN AND IV ANTIBIOTICS TO INFUSE. WILL CONTINUE TO MONITOR.
--- NOTE | 2020-03-16 18:19 | NUR ---
CLOSING NOTE INITIAL NOTE PT AWAKE SITTING AT EDGE OF BED EATING DINNER. IV SALINE LOCKED. CALL LIGHT WITHIN REACH, BED IN LOW AND LOCKED POSITION. ALL NEEDS MET THROUGHOUT SHIFT. ISOLATION PRECAUTIONS IN PLACE. WILL CONTINUE TO MONITOR UNTIL PT CARE IS ENDORSED TO RESEARCH RECRUITER RN.
[2020-03-16 20:00] VITALS: BP_SYST 139
--- NOTE | 2020-03-16 20:00 | NUR ---
INITIAL NOTE PT AWAKE SITTING AT EDGE OF BED. IV SALINE LOCKED. CALL LIGHT WITHIN REACH, EDUCATED PATIENT ON HOW TO USE CALL LIGHT. PATIENT DEMONSTRATED UNDERSTANDING. BED IN LOW AND LOCKED POSITION. BED ALARM OFF PATIENT AMBULATES FREQUENTLY. EDUCATED PATIENT TO CALL FOR ASSISTANCE IF NEEDED. PATIENT VERBALIZED UNDERSTANDING. ISOLATION PRECAUTIONS IN PLACE. WILL CONTINUE TO MONITOR.
--- NOTE | 2020-03-16 20:30 | NUR ---
Medication Pass Patient shouting, refusing medications at this time. Educated on importance of taking medications as ordered. Patient continues to refuse mediation and becoming more agitated. Will continue to monitor.
[2020-03-16] MEDS: traZODone HCL 50 MG TABLET (DESYREL) PO SCH (20:53)
[2020-03-16 23:11] VITALS: BP_SYST 113
--- NOTE | 2020-03-16 23:30 | NUR ---
Rounds Patient requesting snack at this time, provided snack and refilled water pitcher. Patient sitting in bed, consuming snack. Calm at this time. Will continue to monitor.
--- NOTE | 2020-03-17 02:30 | NUR ---
Rounds Patient awake, ambulated steadily to restroom. Patient voided with no complaints. Will continue to monitor.
--- NOTE | 2020-03-17 06:43 | NUR ---
Closing Note Accucheck done, no insulin needed. Patient awake, ambulating in room. No signs of distress noted. Safety precautions in place. Will continue to monitor until endorsed to am nurse. All needs met throughout shift.
[2020-03-17] MEDS: VALPROIC ACID 250 MG CAPSULE (DEPAKENE) PO SCH ×2 (08:40→21:39)
[2020-03-17] MEDS: QUEtiapine FUMARATE 100 MG TABLET PO SCH ×3 (08:41→21:39)
[2020-03-17] MEDS: CHOLECALCIFEROL (VITAMIN D3) 2,000 UNIT TABLET PO SCH (09:00)
[2020-03-17] MEDS: MULTIVITS,CA,MINERALS/IRON/FA 1 TABLET PO SCH (09:00)
[2020-03-17] MEDS: ENOXAPARIN SODIUM 40 MG/0.4 ML SYRINGE SUBCUT SCH (09:00)
--- NOTE | 2020-03-17 09:00 | NUR ---
ASSUMPTION OF CARE: RECEIVED PT A/A/CONFUSED, DX:RISK FOR FLUID VOLUME EXCESS, R/T RLL CELLULITIS, VSS, AFEBRILE, NO DISTRESS NOTED AT THIS TIME, PT IS DELUSIONAL, OBSERVED WHILE SHOUTING OUT OBSCENITIES, AND VOCALIZING NONSENSICAL CONVERSATION WHILE NO ONE ELSE PRESENT IN THE ROOM WITH HER. PT IS NONCOMPLIANT WITH MOST OF HER TREATMENT PLAN, DENIES HAVING PAIN OR DISCOMFORT IN INFECTED LEG, REFUSES EXAMINATION OF RLL EXTREMITY, IV SITE INTACT, PATENT, NO REDNESS OR SWELLING NOTED, UP OOB WITH STEADY GAIT, CALL LIGHT WITHIN REACH, ROOM CLOSE TO NURSES STATION, WILL CONT' TO MONITOR AND ASSESS.
--- NOTE | 2020-03-17 09:00 | NUR ---
ROUSTABOUT SUPERVISOR: MORNING MEDS GIVEN PER ORDERED BY Brando, TOLERATED WELL, WILL CONT' TO MONITOR AND ASSESS.
--- NOTE | 2020-03-17 10:56 | NUR ---
Nutrition F/U RD reviewed pt's current EMR including diet Hx, physician notes, nursing notes, pertinent labs/meds/procedures, care trends and care activity. Current Diet Order/Nutrition Support: Regular diet w/ César BID x 3 days Subjective information: Per RN, pt has excellent appetite and has been tolerating current diet order. Pt has been agitated and psychotic, shouting and kicking nursing staff this morning. Per EMR, abd is soft and nondistended, last BM 03/15 x1. Per outpatient dietitian, pt is requesting for Ensure w/ meals. RD noted elevated HbA1c 6.1 (03/12/20) and elevated BG and POC BG. Pt may benefit from CCHO diet w/ Glucerna TID. Pertinent Medications: seroquel, zinc, SSI, theragran-M, VIT D, lovenox, zofran Pertinent Labs: 03/14 BG 132H, 03/12 HbA1c 6.1H, POC BG 117H Skin Integrity Comment: Daniel score 21; Rush Seater's note: 1. Right anterior lowery: venous insuffciency ulcer, present on admission. 2. Right anterior lowery: Inferior to site 1: venous insufficiency ulcer, present on admission. Right Posterior Calf: chronic wound Current % PO Good (75-100%) x 4 days Estimated Energy Expenditure (kcals/day) 7762-9380 kcal/day (30-35 kcal/kg CBW for possible sepsis, wound healing) Estimated Protein Required (g/day) 86-114 g pro/day (1.5-2.0 g pro/kg CBW for possible sepsis, wound healing) Estimated Fluid Required (l/day) 5144-5606 ml/day (1ml/kcal for normal maintenance) Problem/Etiology/Signs/Symptoms Inadequate protein energy intake related to increased nutritional demands for sepsis and healing as evidenced by pt having possible sepsis and wounds per purchasing specialist's note. *ongoing Increased energy and protein needs r/t metabolic demands AEB presence of wound and sepsis. *new 03/17/2020 Altered nutrition related labs r/t endocrine dysfunction AEB elevated HbA1c and BG lab values. *new 03/17/2020 Expected Outcomes/Goals - Will monitor pt's diet tolerance with goal of pt continuing 90%-100% of estimated nutritional needs, labs trending WNL, normal GI function, skin integrity, and weight maintenance. Dietitian Recommendations * Recommend [facility] diet w/ Glucerna TID. ONS will provide additional 660 kcal and 30gm protein daily. * Continue César BID. Follow Up Low Risk: F/U in 7 days
--- NOTE | 2020-03-17 11:00 | NUR ---
VISIT: AT BEDSIDE FOR ASSESSMENT OF PT, NO NEW ORDERS AT THIS TIME, WILL CONT' WITH POC.
--- NOTE | 2020-03-17 11:05 | NUR ---
Dietitian Recommendations * Recommend [facility] diet w/ Glucerna TID. ONS will provide additional 660 kcal and 30gm protein daily. * Continue César BID. Please see Nutrition F/U note for details. KAT STOVALL
--- NOTE | 2020-03-17 11:30 | NUR ---
Discharge Planning: DCP faxed pt referral to [facility] (f [phone] p [phone]) DCP to follow up Addendum: 03/17/20 at 1344 by Linda Lunsford DP DCP followed up with Ya [phone] at [facility] (f [phone] p [phone]) per Sima this patient was going to [facility], Sima will call [facility].
--- NOTE | 2020-03-17 12:00 | NUR ---
GLUCOSE MONITORING: BLOOD SUGAR GVVAR=[id number], NO COVERAGE REQUIRED, TOLERATING DIET, WILL CONT' TO MONITOR AND ASSESS.
[2020-03-17 12:22] VITALS: BP_SYST 112
[2020-03-17] MEDS: LORazepam 2 MG/ML VIAL IVP PRN (13:26)
[2020-03-17] MEDS: FLUCONAZOLE 100 mg/ NS 50 ML IV SCH (13:26)
--- NOTE | 2020-03-17 13:40 | NUR ---
VISIT: AT BEDSIDE FOR ASSESSMENT OF PT, NO NEW ORDERS GIVEN AT THIS TIME, WILL CONT' TO MONITOR AND ASSESS.
--- NOTE | 2020-03-17 13:45 | NUR ---
Wound Care Planning: Dr. Rodrigues wants to place ACell on wounds and place a Prevena Wound VAC on the ACell and wound. The VAC must stay on for seven days and be reinforced prn, then it may be thrown away. This Wound Vac and ACell are specialty products and are in the process of approval and ordering. The patient may be discharged after the Prevena is placed.
--- NOTE | 2020-03-17 14:38 | NUR ---
Wound Re-Evaluation: Patient received in a Radha bed, awake, alert, confused. Patient is unable to turn in bed independently. Daniel score is a 21. Past Medical History: Diabetes Mellitus, Schizoaffective disorder, Cellulitis, Schizophrenia. Microbiology: Blood culture results x2 in progress. Urine culture results in progress. Right Lower Extremity Wound culture results positive for Morganella Morganii (LUMBER STRAIGHTENER) and Staphylococcus Aureus. Intrinsic factors that delay wound healing: Diabetes Mellitus. Extrinsic factors that delay wound healing: Decreased mobility. Wound Assessment: 1. Right Anterior Wells: Venous insufficiency ulcer, present on admission. Wound bed has 30% pink tissue, 70% yellow tissue. No odor, no drainage. Periwound intact. Surrounding tissue has less erythema, non-pitting edema, and has decreased calor. Wound measures 2.5 cm x 1.4 cm. Recommend continue: Cleanse wound with normal Saline. Apply SurePrep to sara-wound. Apply Venelex ointment to wound bed. Cover with 6x6 foam dressing in diagonal fashion. Perform wound care daily, and as needed for dressing soiling or dislodgment. 2. Right Anterior Wells, Inferior to Site 1: Venous insufficiency ulcer, present on admission. Wound bed has 60% yellow tissue, 40% pink tissue. No odor, no drainage. Periwound intact. Surrounding tissue has less erythema, non-pitting edema, and has decreased calor. Wound measures 9.0 cm x 3.4 cm. Recommend: Cleanse wounds with normal Saline. Apply SurePrep to sara-wounds. Apply Silver Sulfadiazine ointment to wound beds. Cover with Silver foam dressings. Wrap with tavo wrap. Perform wound care daily, and as needed for dressing soiling or dislodgment. 3. Right Posterior Distal Calf: Chronic wound, present on admission. Wound bed has 100% brown scab. No odor, no drainage. Dry, stable. Sara-wound intact. Wound measures 1.2 cm x 1.2 cm. Recommend continue: No dressing needed. Continue to monitor site q shift. Also recommend continue: Encourage and assist patient as needed with repositioning every two hours with pillow support, and off-load pressure areas with pillows for pressure re-distribution. Offload, elevate and float heel with pillows. Perform skin care and monitor skin integrity q shift. Use moisture barrier cream on buttocks, and other moisture susceptible areas qid and as needed for soiling. Wound Care Planning: Dr. Rodrigues wants to place ACell on wounds and place a Prevena Wound VAC on the ACell and wound. The VAC must stay on for seven days and be reinforced prn, then it may be thrown away. This Wound Vac and ACell are specialty products and are in the process of approval and ordering. The patient may be discharged after the Prevena is placed.
[2020-03-17] MEDS: SILVER SULFADIAZINE 1%, 400 GM 400 GM CREAM.GM. TP SCH ×2 (15:09→21:00)
--- NOTE | 2020-03-17 15:09 | NUR ---
Dc Planning: s/w Sima at [facility]: informed her the pt is not on 5150, no meet criteria for [facility] transfer. The pt has order to return to snf with wound care and IV abx. Per Sima: there is no bed for the pt today dt the pt's roommate need to be in isolation. She asked to call back tomorrow for bed availability. Sima gave additional information that the pt is homeless and may find other snf will be okay with her md as well. -- Ashlyn Lead TRAFFIC CIRCUIT ENGINEER and NANCI Mckeon made aware and will try to find other accepting nursing facility for back up.
[2020-03-17 16:30] VITALS: BP_SYST 116
--- NOTE | 2020-03-17 17:00 | NUR ---
GLUCOSE MONITORING: BLOOD SUGAR FAMTJ=[id number], NO COVERAGE REQUIRED, TOLERATING DIET, WILL CONT' TO MONITOR AND ASSESS.
[2020-03-17] MEDS: cefTRIAXone 1 GM in D5W 50 ML IV SCH (17:08)
--- NOTE | 2020-03-17 19:10 | NUR ---
Report received from day shift nurse. Pt is lying in bed without any distress noted. Skin is warm and dry to touch. No signs or symptoms of hypoglycemia or hyperglycemia noted. Saline lock in LFA noted without any signs of infiltration. Fall, contact isolation and safety precautions are in place. Direct Observer is in the room with pt.
[2020-03-17 20:00] VITALS: BP_SYST 112
[2020-03-17] MEDS: traZODone HCL 50 MG TABLET (DESYREL) PO SCH (21:39)
--- NOTE | 2020-03-17 21:39 | NUR ---
Accucheck 134 and no Insulin coverage needed. Skin remains warm and dry to touch. Pt declined HS snacks. Pt is cooperative, but irritable. Pt snatched her medication cup and water from RN, but swallowed her medications without any difficulty swallowing. Fall and safety precautions are in place.
--- NOTE | 2020-03-17 23:30 | NUR ---
Pt is sleeping quietly in bed. No respiratory distress noted. Fall and safety precautions are in place.
--- NOTE | 2020-03-18 01:35 | NUR ---
Pt is lying in bed awake and watching TV. No acute distress noted. Fall and safety precautions are in place.
--- NOTE | 2020-03-18 03:00 | NUR ---
Pt is sleeping in bed without any distress noted. Right leg dressing is dry and intact. Fall and safety precautions are in place.
--- NOTE | 2020-03-18 04:51 | NUR ---
Pt is asleep in bed. No acute distress noted at this time. Fall and safety precautions are in place.
--- NOTE | 2020-03-18 05:34 | NUR ---
Pt is awake and sitting on the edge of her bed. Dr. Marie is here to see pt.
--- NOTE | 2020-03-18 05:52 | NUR ---
Pt requested coffee and pudding. Pt agreed to have her blood sugar checked first. Accucheck 105 and skin remains warm and dry to touch. No Insulin coverage needed. Pt ate 2 cups of chocolate pudding and drank a cup of coffee with sugar substitute and creamer. No c/o pain or discomfort. Fall and safety precautions are in place. Rt leg dressing is dry and intact.
--- NOTE | 2020-03-18 07:15 | NUR ---
OPENING NOTES PT RESTING IN BED, CHEST RISE AND FALL NOTED. EASILY AWAKE, PT DENIES PAIN AND SOB AT THIS TIME. NONLABORED BREATHING NOTED ON ROOM AIR, O2 AT 96%. IV LINE INTACT AND PATENT, NO SIGNS OF INFILTRATION NOTED. NO ACUTE DISTRESS NOTED. BED LOCKED AND IN LOWEST POSITION. ALL NEEDS MET. CALL LIGHT IN REACH. FALL AND ASPIRATION PRECAUTIONS IN PLACE. CONTINUE TO MONITOR.
[2020-03-18 08:00] VITALS: BP_SYST 140
[2020-03-18] MEDS: QUEtiapine FUMARATE 100 MG TABLET PO SCH ×3 (08:30→21:24)
[2020-03-18] MEDS: MULTIVITS,CA,MINERALS/IRON/FA 1 TABLET PO SCH (08:30)
[2020-03-18] MEDS: CHOLECALCIFEROL (VITAMIN D3) 2,000 UNIT TABLET PO SCH (08:30)
[2020-03-18] MEDS: VALPROIC ACID 250 MG CAPSULE (DEPAKENE) PO SCH ×2 (08:30→21:24)
[2020-03-18] MEDS: ENOXAPARIN SODIUM 40 MG/0.4 ML SYRINGE SUBCUT SCH (08:31)
--- NOTE | 2020-03-18 08:40 | NUR ---
ROUTINE MEDS ROUTINE MEDS ADMINISTERED ORDERED PER MD, EDUCATION GIVEN, TOLERATED WELL. ALL NEEDS MET. CALL LIGHT IN REACH. CONTINUE TO MONITOR.
--- NOTE | 2020-03-18 09:00 | NUR ---
ASKED PT TO PERFORM WOUND CARE, PT AGITATED AND REFUSED AT THIS MOMENT. EDUCATED RISKS AND BENEFITS, ASKED THREE TIMES, PT CONTINUE TO REFUSE AT THIS TIME. WILL ASK AGAIN.
--- NOTE | 2020-03-18 11:37 | NUR ---
Discharge Planning: DCP spoke to Sima [phone] [facility] (f [phone] p [phone]) she is arranging a isolation room. DCP to follow up.
--- NOTE | 2020-03-18 12:00 | NUR ---
ATTEMPTED AT WOUND CARE AND ACCUCHECK WITH SECURITY ON STANDBY. PT YELLING AND REFUSED AT THIS TIME. WILL ASK AGAIN.
[2020-03-18 12:20] VITALS: BP_SYST 123
[2020-03-18] MEDS: FLUCONAZOLE 100 mg/ NS 50 ML IV SCH (12:41)
[2020-03-18] MEDS: SILVER SULFADIAZINE 1%, 400 GM 400 GM CREAM.GM. TP SCH ×2 (12:41→21:26)
[2020-03-18] MEDS: LORazepam 2 MG/ML VIAL IVP PRN ×2 (12:46→22:18)
--- NOTE | 2020-03-18 12:50 | NUR ---
WOUND CARE, ACCUCHECK, AND PRN ATIVAN ADMINISTERED ATIVAN ORDERED, PT AGITATED, TOLERATED WELL. PT ACCEPTED WOUND CARE, TOLERATED WELL. ACCUCHECK DONE, NO INSULIN COVERAGE NEEDED. ALL NEEDS MET. CALL LIGHT IN REACH. CONTINUE TO MONITOR.
--- NOTE | 2020-03-18 14:00 | NUR ---
ROUNDS PT SITTING UP IN BED, SPEAKING INCOHERENTLY. NO ACUTE DISTRESS NOTED. ALL NEEDS MET. CALL LIGHT IN REACH. CONTINUE TO MONITOR.
--- NOTE | 2020-03-18 16:00 | NUR ---
ROUNDS PT SITTING UP IN BED. NO ACUTE DISTRESS NOTED. ALL NEEDS MET. CALL LIGHT IN REACH. CONTINUE TO MONITOR.
[2020-03-18 16:22] VITALS: BP_SYST 134
[2020-03-18] MEDS: cefTRIAXone 1 GM in D5W 50 ML IV SCH (17:58)
--- NOTE | 2020-03-18 18:00 | NUR ---
ROUTINE MEDS ROUTINE MEDS ADMINISTERED ORDERED PER MD, EDUCATION GIVEN, TOLERATED WELL. CONTINUE TO MONITOR.
--- NOTE | 2020-03-18 18:45 | NUR ---
CLOSING NOTES PT AWAKE AND ALERT. NONLABORED BREATHING NOTED ON ROOM AIR. PT DENIES PAIN AND SOB AT THIS TIME. IV LINE INTACT AND PATENT, NO SIGNS OF INFILTRATION NOTED. NO ACUTE DISTRESS NOTED. BED LOCKED AND IN LOWEST POSITION. ALL NEEDS MET. CALL LIGHT IN REACH. FALL AND ASPIRATION PRECAUTIONS IN PLACE. WILL ENDORSE TO NOC NURSE.
--- NOTE | 2020-03-18 19:30 | NUR ---
OPENING NOTES RECEIVED SBAR REPORT FROM DAY SHIFT RN. PT RESTING IN BED, GEN ANY PAIN AT THIS TIME. BREATHING IS EVEN AND UNLABORED TO ROOM AIR. IV SITE INTACT, NO S/S OF INFILTRATION. CALL LIGHT WITHIN REACH. CLOSE TO NURSING STATION. BED LOCKED IN LOW. SAFETY AND CONTACT PRECAUTIONS MAINTAINED. WILL CONTINUE TO MONITOR.
[2020-03-18 20:00] VITALS: BP_SYST 133
[2020-03-18] MEDS: traZODone HCL 50 MG TABLET (DESYREL) PO SCH (21:24)
--- NOTE | 2020-03-18 21:24 | NUR ---
MEDICATION PASS SCHEDULED MEDICATIONS ADMINISTERED ORDERED. DISCUSSED MEDICATION ACTIONS AND POTENTIAL SIDE EFFECTS, BUT PT HAS POOR CONCENTRATION. PT GEN ANY PAIN OR SHORTNESS OF BREATH. IV SITE INTACT AND PATENT. CALL LIGHT WITHIN REACH. SAFETY AND CONTACT PRECAUTIONS MAINTAINED. WILL MONITOR.
--- NOTE | 2020-03-18 22:18 | NUR ---
AGITATED PT AGITATED. ADMINISTERED ATIVAN ORDERED PRN. PT TOLERATING WELL. NO S/S OF DISTRESS NOTED AT THIS TIME. BREATHING UNLABORED TO ROOM AIR. CLOSE TO NURSING STATION. SAFETY PRECAUTIONS MAINTAINED. WILL CONTINUE TO MONITOR.
[2020-03-18 23:59] VITALS: BP_SYST 106
--- NOTE | 2020-03-19 00:30 | NUR ---
RN ROUNDS PT RESTING IN BED WITH EYES CLOSED. ABLE TO SEE RISE AND FALL RESPIRATIONS. BREATHING UNLABORED TO ROOM AIR. NO SIGNS AND SYMPTOMS OF ACUTE DISTRESS NOTED AT THIS TIME. CALL LIGHT WITHIN REACH. BED LOCKED IN LOWEST LEVEL. SIDE RAILS X2. SAFETY AND CONTACT PRECAUTIONS IN PLACE. WILL CONTINUE TO MONITOR.
--- NOTE | 2020-03-19 02:22 | NUR ---
SLEEPING PT SLEEPING. BREATHING UNLABORED TO ROOM AIR. NO SIGNS AND SYMPTOMS OF PAIN NOTED AT THIS TIME. CALL LIGHT WITHIN REACH. BED LOCKED IN LOWEST LEVEL. SIDE RAILS X2. SAFETY AND CONTACT PRECAUTIONS IN PLACE. WILL CONTINUE TO MONITOR.
--- NOTE | 2020-03-19 04:39 | NUR ---
RN ROUNDS PT FALL ASLEEP. ABLE TO SEE RISE AND FALL RESPIRATIONS. BREATHING UNLABORED TO ROOM AIR. NO S/S OF DISTRESS NOTED. CALL LIGHT WITHIN REACH. SIDE RAILS X2. BED LOCKED IN LOWEST LEVEL. CLOSE TO NURSING STATION. SAFETY AND FALL PRECAUTIONS MAINTAINED. WILL CONTINUE TO MONITOR.
--- NOTE | 2020-03-19 06:46 | NUR ---
CLOSING NOTES PT RESTING IN BED, GEN ANY PAIN AT THIS TIME. BREATHING IS EVEN AND UNLABORED TO ROOM AIR. IV SITE INTACT, NO S/S OF INFILTRATION. CALL LIGHT WITHIN REACH. CLOSE TO NURSING STATION. BED LOCKED IN LOW. SAFETY AND CONTACT PRECAUTIONS MAINTAINED. WILL CONTINUE TO MONITOR UNTIL ENDORSE TO DAY SHIFT RN.
--- NOTE | 2020-03-19 07:15 | NUR ---
OPENING NOTES PT RESTING IN BED, CHEST RISE AND FALL NOTED. EASILY AWAKEN. NONLABORED BREATHING NOTED ON ROOM AIR, O2 AT 98%. PT DENIES PAIN AND SOB AT THIS TIME. IV LINE INTACT AND PATENT, NO SIGNS OF INFILTRATION NOTED. NO ACUTE DISTRESS NOTED. ALL NEEDS MET. CALL LIGHT IN REACH. BED LOCKED AND IN LOWEST POSITION. FALL AND ASPIRATION PRECAUTIONS IN PLACE. CONTINUE TO MONITOR.
[2020-03-19 08:00] VITALS: BP_SYST 119
[2020-03-19] MEDS: CHOLECALCIFEROL (VITAMIN D3) 2,000 UNIT TABLET PO SCH (08:56)
[2020-03-19] MEDS: MULTIVITS,CA,MINERALS/IRON/FA 1 TABLET PO SCH (08:56)
[2020-03-19] MEDS: QUEtiapine FUMARATE 100 MG TABLET PO SCH ×3 (08:56→21:47)
[2020-03-19] MEDS: VALPROIC ACID 250 MG CAPSULE (DEPAKENE) PO SCH ×2 (08:56→21:48)
[2020-03-19] MEDS: ENOXAPARIN SODIUM 40 MG/0.4 ML SYRINGE SUBCUT SCH (09:00)
[2020-03-19] MEDS: SILVER SULFADIAZINE 1%, 400 GM 400 GM CREAM.GM. TP SCH ×2 (09:00→21:48)
--- NOTE | 2020-03-19 09:00 | NUR ---
ROUTINE MEDS ROUTINE MEDS ADMINISTERED ORDERED PER MD, EDUCATION GIVEN, TOLERATED WELL. NO ACUTE DISTRESS NOTED. CONTINUE TO MONITOR.
--- NOTE | 2020-03-19 09:50 | NUR ---
WOUND CARE DONE, TOLERATED WELL. CONTINUE TO MONITOR.
--- NOTE | 2020-03-19 11:00 | NUR ---
ROUNDS PT SITTING UP IN BED, NONLABORED BREATHING NOTED. NO ACUTE DISTRESS NOTED. CALL LIGHT IN REACH. CONTINUE TO MONITOR.
[2020-03-19 12:23] VITALS: BP_SYST 119
--- NOTE | 2020-03-19 12:45 | NUR ---
PT IN BATHROOM, PT STATES TO COME BACK WHEN SHE IS FINISHED TO ADMINISTER MEDS. WILL COME BACK.
[2020-03-19] MEDS: FLUCONAZOLE 100 mg/ NS 50 ML IV SCH (13:33)
--- NOTE | 2020-03-19 13:33 | NUR ---
PT CAME OUT OF THE BATHROOM, ADMINISTERED PAIN MEDS ORDERED PER MD, EDUCATION GIVEN, TOLERATED WELL. PT YELLING OBSCENITIES, PROSTHETIC AIDE AT BEDSIDE WELL. ALL NEEDS MET. CALL LIGHT IN REACH. CONTINUE TO MONITOR.
--- NOTE | 2020-03-19 15:00 | NUR ---
ROUNDS PT SITTING UP IN BED WATCHING TELEVISION. NO ACUTE DISTRESS NOTED. CONTINUE TO MONITOR.
--- NOTE | 2020-03-19 16:10 | NUR ---
SPOKE TO DR. SAMUELS AT NURSES' STATION. NO NEW ORDERS RECEIVED.
[2020-03-19 16:30] VITALS: BP_SYST 117
[2020-03-19] MEDS: cefTRIAXone 1 GM in D5W 50 ML IV SCH (17:31)
--- NOTE | 2020-03-19 17:35 | NUR ---
ROUTINE MEDS ROUTINE MEDS ADMINISTERED ORDERED PER MD, EDUCATION GIVEN, TOLERATED WELL. CALL LIGHT IN REACH. CONTINUE TO MONITOR.
--- NOTE | 2020-03-19 18:24 | NUR ---
CLOSING NOTES PT AWAKE AND SITTING UP AT THE EDGE OF THE BED. NONLABORED BREATHING NOTED. PT DENIES PAIN AND SOB AT THIS TIME. NO ACUTE DISTRESS NOTED. IV LINE INTACT AND PATENT, NO SIGNS OF INFILTRATION NOTED. BED LOCKED AND IN LOWEST POSITION. ALL NEEDS MET. CALL LIGHT IN REACH. FALL AND ASPIRATION PRECAUTIONS IN PLACE. WILL ENDORSE TO NOC NURSE.
--- NOTE | 2020-03-19 19:30 | NUR ---
OPENING NOTES RECEIVED SBAR REPORT FROM DAY SHIFT RN. PT WALKING AROUND HER ROOM. NO S/S OF DISTRESS NOTED AT THIS TIME. BREATHING EVEN AND UNLABORED TO ROOM AIR. CALL LIGHT WITHIN REACH. CLOSE TO NURSING STATION. SAFETY AND CONTACT PRECAUTIONS MAINTAINED. WILL CONTINUE TO MONITOR.
[2020-03-19 20:00] VITALS: BP_SYST 144
[2020-03-19] MEDS: traZODone HCL 50 MG TABLET (DESYREL) PO SCH (21:47)
--- NOTE | 2020-03-19 21:48 | NUR ---
MEDICATION PASS SCHEDULED MEDICATIONS ADMINISTERED ORDERED. DISCUSSED MEDICATION ACTIONS AND SIDE EFFECTS BUT PT HAS POOR CONCENTRATION AT THIS TIME. PT GEN ANY PAIN AT THIS TIME. CALL LIGHT WITHIN REACH. SAFETY AND CONTACT PRECAUTIONS MAINTAINED. WILL CONTINUE TO MONITOR.
--- NOTE | 2020-03-20 00:05 | NUR ---
RN ROUNDS PT RESTING IN BED WITH EYES CLOSED, FALL ASLEEP. ABLE TO SEE RISE AND FALL RESPIRATIONS. BREATHING UNLABORED TO ROOM AIR. BED LOCKED IN LOWEST LEVEL. CALL LIGHT WITHIN REACH. SAFETY AND CONTACT PRECAUTIONS MAINTAINED. WILL CONTINUE TO MONITOR.
[2020-03-20 00:12] VITALS: BP_SYST 131
--- NOTE | 2020-03-20 02:15 | NUR ---
RESTING PT RESTING IN BED WITH EYES CLOSED, FALL ASLEEP. ABLE TO SEE RISE AND FALL RESPIRATIONS. BREATHING UNLABORED TO ROOM AIR. BED LOCKED IN LOWEST LEVEL. CALL LIGHT WITHIN REACH. SAFETY AND CONTACT PRECAUTIONS MAINTAINED. WILL CONTINUE TO MONITOR.
--- NOTE | 2020-03-20 04:30 | NUR ---
RN ROUNDS PT RESTING IN BED. BREATHING UNLABORED TO ROOM AIR. BED LOCKED IN LOWEST LEVEL. CALL LIGHT WITHIN REACH. SAFETY AND CONTACT PRECAUTIONS MAINTAINED. WILL CONTINUE TO MONITOR.
--- NOTE | 2020-03-20 06:50 | NUR ---
CLOSING NOTES PT RESTING IN BED. NO S/S OF DISTRESS NOTED AT THIS TIME. BREATHING EVEN AND UNLABORED TO ROOM AIR. CALL LIGHT WITHIN REACH. CLOSE TO NURSING STATION. SAFETY AND CONTACT PRECAUTIONS MAINTAINED. WILL CONTINUE TO MONITOR UNTIL ENDORSE TO DAY SHIFT RN.
--- NOTE | 2020-03-20 07:30 | NUR ---
OPENING NOTES: RECEIVED PATIENT FROM CASING INSPECTOR NURSE. PATIENT IS ASLEEP LAYING DOWN IN BED. PATIENT IS TOLERATING OXYGEN ON ROOM AIR WITH NO SIGNS OF DISTRESS OR SHORTNESS OF BREATH NOTED. IV SITE IS PATENT WITH NO SIGNS OF INFILTRATION NOTED. PATIENT IN STABLE CONDITION. SAFETY, FALL, ASPIRATION AND CONTACT PRECAUTIONS ARE IN PLACE. BED LOCKED IN LOWEST POSITION WITH CALL LIGHT IN REACH. WILL CONTINUE TO MONITOR PATIENT FOR ANY CHANGES.
[2020-03-20 08:00] VITALS: BP_SYST 146
[2020-03-20] MEDS: QUEtiapine FUMARATE 100 MG TABLET PO SCH ×4 (08:00→22:24)
[2020-03-20] MEDS: MULTIVITS,CA,MINERALS/IRON/FA 1 TABLET PO SCH (08:51)
[2020-03-20] MEDS: VALPROIC ACID 250 MG CAPSULE (DEPAKENE) PO SCH ×2 (08:51→21:00)
[2020-03-20] MEDS: CHOLECALCIFEROL (VITAMIN D3) 2,000 UNIT TABLET PO SCH (08:51)
[2020-03-20] MEDS: SILVER SULFADIAZINE 1%, 400 GM 400 GM CREAM.GM. TP SCH ×2 (08:51→21:00)
[2020-03-20] MEDS: ENOXAPARIN SODIUM 40 MG/0.4 ML SYRINGE SUBCUT SCH (08:53)
--- NOTE | 2020-03-20 10:18 | NUR ---
RN ROUNDS: PATIENT IS WASHING UP AT THE SINK. PATIENT REFUSES TO LET ME INSIDE THE ROOM. I ATTEMPTED TO ENTER AND SHE PUSHED THE DOOR ON ME. PATIENT IS YELLING AND CONFUSED. PATIENT AMBULATING STEADY. WILL ATTEMPT TO ENTER THE ROOM LATER.
--- NOTE | 2020-03-20 10:23 | NUR ---
Discharge Planning: DCP faxed pt referral to [facility] (f [phone] p [phone]) DCP to follow up Selene Velarde [phone] nicolette Chand not accepting patients at this time. Addendum: 03/20/20 at 1205 by Linda Lunsford DP DCDavide spoke to Marni at [facility] (f [phone] p [phone]) she stated the sister facility had a room- [address] [address] # to report [phone] Rm 8B. DCP made CM and nurse aware, transportation on WILL CALL with [facility] ([phone]). Pending wound vac placement, to be determined by doctor.
--- NOTE | 2020-03-20 10:41 | NUR ---
MEDICATIONS: PATIENT REFUSED TO TAKE HER MORNING SEROQUEL. PATIENT STATED IT GAVE HER A HEADACHE YESTERDAY. DR. SAMUELS MADE AWARE. PATIENT IN STABLE CONDITION. WILL CONTINUE TO MONITOR PATIENT FOR ANY CHANGES.
[2020-03-20] MEDS: FLUCONAZOLE 100 mg/ NS 50 ML IV SCH (12:30)
--- NOTE | 2020-03-20 12:40 | NUR ---
RN ROUNDS: PATIENT IS AWAKE AND YELLING WHILE LAYING DOWN IN BED. PATIENT REFUSED TO HAVE VITALS TAKEN AND YELLED FOR ME TO "GET THE HELL OUT OF HER ROOM". IV ANTIBIOTICS GIVEN AT THIS TIME. PATIENT DENIES ANY PAIN AT THE MOMENT. PATIENT IN STABLE CONDITION. WILL CONTINUE TO MONITOR PATIENT FOR ANY CHANGES.
--- NOTE | 2020-03-20 13:30 | NUR ---
IV INFILTRATED: PATIENT'S IV SITE BECAME INFILTRATED. IV ANTIBIOTIC WAS STOPPED. PATIENT REFUSED FOR ME TO TAKE OUT IV SITE. PATIENT YELLED FOR ME TO GET OUT AND FOLLOWED AFTER ME TOWARD THE DOOR AND SLAMMED IT SOON I GOT OUT. WILL CONTINUE TO MONITOR PATIENT FOR ANY CHANGES. Addendum: 03/20/20 at 1533 by Lady Mayorga RN UNABLE TO INSERT NEW IV SITE DUE TO PATIENT NOT ALLOWING ME TO STAY IN THE ROOM. WILL ATTEMPT AT A LATER TIME.
--- NOTE | 2020-03-20 14:34 | NUR ---
RN ROUNDS: PATIENT IS AWAKE AND YELLING IN HER ROOM. PATIENT TOLERATING OXYGEN ON ROOM AIR WITH NO SIGNS OF DISTRESS OR SHORTNESS OF BREATH NOTED. PATIENT YELLED FOR ME TO GET OUT. PATIENT IN STABLE CONDITION. WILL CONTINUE TO MONITOR PATIENT FOR ANY CHANGES.
--- NOTE | 2020-03-20 14:59 | NUR ---
Discharge Barriers: Pending Dr Rodrigues to schedule the procedure for R leg ulcer and will need consent for Incision debridement and culture with possible application of wound vac Prevena and acell options. >> I spoke with Heather/admin assistance : saidBrynNyla DAV already signed approval for the Acell dressing and Wd Vac. I LVM /notified to Scotty, wound care nurse. TIN Narayanan and NEVAEH Garrett made aware. I requested RN to f/u with dr. Rodrigues for the surgery plan/scheduling and order. >> Dr Adame made aware of the above info and [facility] accepted and has room available for the pt. The md said pt can transfer to snf after the procedure.
--- NOTE | 2020-03-20 16:20 | NUR ---
RN ROUNDS: PATIENT IS AWAKE AND ALERT x2 LAYING DOWN IN BED. PATIENT REFUSED FOR ME TO TAKE HER VITALS AND FOR ME TO ATTEMPT TO PUT A NEW IV SITE IN. PATIENT STARTED YELLING AND CUSSING AT ME AND STATED "GET THE HELL OUT OF MY ROOM, DUMB ASS". PATIENT IS TOLERATING OXYGEN ON ROOM AIR WITH NO SIGNS OF DISTRESS OR SHORTNESS OF BREATH NOTED. PATIENT IN STABLE CONDITION. WILL CONTINUE TO MONITOR PATIENT FOR ANY CHANGES.
[2020-03-20] MEDS: cefTRIAXone 1 GM in D5W 50 ML IV SCH (17:00)
--- NOTE | 2020-03-20 17:15 | NUR ---
MEDICATIONS PASS: PATIENT IS AWAKE AND ALERT x2 LAYING DOWN IN BED. PATIENT REFUSED TO TAKE HER MEDICATIONS AND REFUSED FOR ME TO ATTEMPT TO PUT A NEW IV IN FOR HER ANTIBIOTICS. PATIENT BEGAN SCREAMING AND CURSING AT ME AND DEMANDED FOR ME TO LEAVE HER ROOM. I TURNED TO WALK OUT AND PATIENT SAT UP FROM HER BED AND BEGAN TO FOLLOW ME TO THE DOOR AND SLAMMED IT ONCE I WALKED OUT. PATIENT IN STABLE CONDITION. WILL CONTINUE TO MONITOR PATIENT FOR ANY CHANGES.
--- NOTE | 2020-03-20 18:23 | NUR ---
paged paged for Dr Rodrigues, dialed . s/w Lemuel
--- NOTE | 2020-03-20 18:30 | NUR ---
SPOKE WITH DR. BAUTISTA: DR. BAUTISTA RETURNED MY CALL. ASKED HIM WHAT HIS PLAN FOR PATIENT IS. HE STATED HE WANTS TO DO A DEBRIDEMENT AND PUT SOMETHING ON FOR SEVEN DAYS TO HELP THE WOUND HEAL BUT CAN NOT DO SO UNTIL HER MENTAL STATUS IS STABILIZED. INFORMED MD THAT SHE HAS BEEN REFUSING HER PSYCH MEDICATIONS TODAY AND REFUSED TO HAVE A NEW IV PUT IN FOR HER ANTIBIOTICS. DR. BAUTISTA WANTS US TO LET DR. DURAN KNOW WHEN HE COMES TO SEE HER NEXT.
--- NOTE | 2020-03-20 18:39 | NUR ---
CLOSING NOTES: PATIENT IS AWAKE AND ALERT x1 PACING AROUND IN HER ROOM. PATIENT IS TOLERATING OXYGEN ON ROOM AIR WITH NO SIGNS OF DISTRESS OR SHORTNESS OF BREATH NOTED. IV SITE IN LEFT FOREARM IS INFILTRATED. PATIENT REFUSED TO LET ME TAKE IV CATHETER OUT AND PUT A NEW ONE IN. WILL ENDORSE TO GENERAL OPERATIONS MANAGER NURSE TO SEE IF SHE WILL LET THEM. PATIENT IN STABLE CONDITION. SAFETY, FALL, ASPIRATION AND CONTACT PRECAUTIONS REMAINED IN PLACE THROUGHOUT THE SHIFT. BED LOCKED IN LOWEST POSITION WITH CALL LIGHT IN REACH. WILL ENDORSE PATIENT CARE TO ONCOMING GENERAL OPERATIONS MANAGER NURSE.
--- NOTE | 2020-03-20 20:00 | NUR ---
AWAKE, ALERT. LOUD. SHOUTING OBSCENITIES. HOSTILE. NON-COMPLIANT. TANGENTIAL. REFUSED VITAL SIGNS TO BE TAKE.
--- NOTE | 2020-03-20 21:30 | NUR ---
STILL LOUD. REFUSED MEDS. WAS FINALLY CONVINCED TO TAKE SOME MEDS, SELECTIVE COMPLIANCE. CONTACT ISOLATION OBSERVED.
[2020-03-20] MEDS: traZODone HCL 50 MG TABLET (DESYREL) PO SCH (22:23)
--- NOTE | 2020-03-21 | NUR ---
DOZES ON AND OFF. STILL LOUD, TALKING TO SELF.
--- NOTE | 2020-03-21 03:00 | NUR ---
SLEPT INTERMITTENTLY. HALLUCINATES. LOUD VOICE NOTED.
--- NOTE | 2020-03-21 05:40 | NUR ---
DR DURAN HERE. UPDATED ON STATUS. NEW ORDERS TO BE GIVEN PER DR DURAN.
--- NOTE | 2020-03-21 06:00 | NUR ---
SLEPT ON AND OFF. REMAINS IN GUARDED CONDITION.
[2020-03-21 08:00] VITALS: BP_SYST 149
--- NOTE | 2020-03-21 08:00 | NUR ---
am notes received pt in bed. a/ox1. pt is yelling and confused.res even and unlabored. notin acute distress.vitals stable. siting in chair eating breakfast. safety /fall and contact precautions in place. call light within reach. kept comfortable.will continue to monitor
[2020-03-21] MEDS ORDERED: VALPROIC ACID 250 MG CAPSULE (DEPAKENE) PO SCH (09:00)
--- NOTE | 2020-03-21 09:30 | NUR ---
meds went in side to room to give meds. pt is in bathroom .yelling out.pt refused meds at this time. pt stated get out from here.i am busy.will try to give meds again.
--- NOTE | 2020-03-21 09:49 | NUR ---
DC Barriers: Pending 1. Acell dressing and wd vac. placement. Per TIN Narayanan's note: DR. BAUTISTA CAN NOT DO SO UNTIL HER MENTAL STATUS IS STABILIZED. THE PT. HAS BEEN REFUSING HER PSYCH MEDICATIONS AND REFUSED TO HAVE A NEW IV PUT IN FOR HER ANTIBIOTICS. 2. Scotty/wound care nurse ordered the dressing and wd vac supplies yesterday and is pending delivery time. 3. The pt's mental status is not ready for the procedure, (yelling, agitation). Dr. Marie increased Depakote dosage yesterday.
[2020-03-21] MEDS: QUEtiapine FUMARATE 100 MG TABLET PO SCH ×2 (10:36→17:00)
[2020-03-21] MEDS: MULTIVITS,CA,MINERALS/IRON/FA 1 TABLET PO SCH (10:36)
[2020-03-21] MEDS: CHOLECALCIFEROL (VITAMIN D3) 2,000 UNIT TABLET PO SCH (10:37)
[2020-03-21] MEDS ORDERED: LORazepam 2 MG/ML VIAL IM PRN (10:45)
[2020-03-21] MEDS ORDERED: HALOPERIDOL LACTATE 5 MG/ML VIAL IM PRN (10:45)
[2020-03-21] MEDS ORDERED: DIPHENHYDRAMINE INJ 50 MG/ML VIAL IM PRN (10:45)
--- NOTE | 2020-03-21 10:45 | NUR ---
agitation pt yelling and very agitated. throwing water on the floor ,slamming door.security called talking to pt. charge nurse radha and house supervisitor here.dr camara called and notified.new order received.
[2020-03-21] MEDS: ENOXAPARIN SODIUM 40 MG/0.4 ML SYRINGE SUBCUT SCH (10:55)
[2020-03-21] MEDS ORDERED: HALOPERIDOL LACTATE 5 MG/ML VIAL ONE (10:59)
[2020-03-21] MEDS ORDERED: LORazepam 2 MG/ML VIAL ONE (11:00)
[2020-03-21] MEDS ORDERED: DIPHENHYDRAMINE INJ 50 MG/ML VIAL ONE (11:01)
--- NOTE | 2020-03-21 11:15 | NUR ---
AGITATION PT VERY AGITATED YELLING . SECURITY AT BED SIDE. MEIDICATED WITH ATIVEN/ HALDOL IM/BENADRYL ORDERED. PT PLACED ON SOFT WRIST RESTRAINTS FOR SAFETY. ORDERED BY DR DURAN.WILL CONTINUE TO MONITOR Addendum: 03/21/20 at 1757 by Catherine Hills RN 03/21/20 1100 CLARIFICATION MAIRA CHARGE NURSE SPOKE TO DR SAMUELS. RECEIVED ORDER FOR SOFT WRIST RESTRAINTS.
[2020-03-21] MEDS ORDERED: DOXYCYCLINE HYCLATE 100 MG CAPSULE PO ONE (11:30)
--- NOTE | 2020-03-21 12:03 | NUR ---
Discharge Planning: DCP faxed pt clinicals to [facility] (f [phone]) per NEVAE[facility] request. Addendum: 03/21/20 at 1205 by Linda Lunsford DP Per CNO patient is on a /50 and will go to [facility] today. Addendum: 03/21/20 at 1251 by Linda Lunsford DP DCP called [facility] ([phone]) confirmed Will Call and change destination to [facility].
--- NOTE | 2020-03-21 13:00 | NUR ---
ROUNDS PT STABLE. NOT IN ACUTE DISTRESS. RESTING COMFORTABLY.AMULATED TO THE BATHROOM WITH CHARGE NURSE MICHAEL. PT IS YELLING AND SCRAMING ON AND OFF. CONINUE ON SOFT WRIST RESTRAINTS. SKIN AND CIRCULATION WNL.PT BEEN FED BY [facility]ENRO[facility]. SAFETY AND FALL PRECAUTIONS IN PLACE. WILL CONTINUE TO MONITOR
--- NOTE | 2020-03-21 15:08 | NUR ---
Social Service Note: RONAL spoke with Dorothy ([phone]) at [facility]; Dorothy states that they are waiting for discharges before they can accept the pt. ENVIRONMENTAL SUSTAINABILITY MANAGER provided Dorothy with the number for the nurses station and advised her to please call the station once a bed is available. Ambulance is on will call. Please see Discharge Planning note for information. Addendum: 03/21/20 at 1602 by Ashlyn Morrison LCSW Pt will be going to bed 53A; transportation set up with [facility] ([phone]); sisal picker at 6:00pm.
[2020-03-21 15:38] VITALS: BP_SYST 166
[2020-03-21] MEDS: SILVER SULFADIAZINE 1%, 400 GM 400 GM CREAM.GM. TP SCH (16:00)
--- NOTE | 2020-03-21 16:15 | NUR ---
Wound Re-Evaluation: Patient received in a Radha bed, awake, alert, confused. Patient is unable to turn in bed independently. Daniel score is a 20. Past Medical History: Diabetes Mellitus, Schizoaffective disorder, Cellulitis, Schizophrenia. Microbiology: Blood culture results x2 negative. Urine culture results negative. Intrinsic factors that delay wound healing: Diabetes Mellitus. Extrinsic factors that delay wound healing: Decreased mobility. Wound Assessment: 1. Right Anterior Wells: Venous insufficiency ulcer, present on admission. Wound bed has 100% pink tissue. No odor, no drainage. Periwound intact. Surrounding tissue has less erythema, non-pitting edema, and has decreased calor. Wound measures 1.0 cm x 0.4 cm. Recommend continue: Cleanse wound with normal Saline. Apply SurePrep to sara-wound. Apply Silver Sulfadiazine ointment to wound bed. Cover with 6x6 foam dressing in diagonal fashion. Perform wound care daily, and as needed for dressing soiling or dislodgment. 2. Right Anterior Wells, Inferior to Site 1: Venous insufficiency ulcer, present on admission. Wound bed has 50% yellow tissue, 50% pink tissue. No odor, no drainage. Periwound intact. Surrounding tissue has less erythema, non-pitting edema, and has decreased calor. Wound measures 8.8 cm x 2.8 cm. Recommend continue: Cleanse wounds with normal Saline. Apply SurePrep to sara-wounds. Apply Silver Sulfadiazine ointment to wound beds. Cover with Silver foam dressings. Wrap with tavo wrap. Perform wound care daily, and as needed for dressing soiling or dislodgment. 3. Right Posterior Distal Calf: Chronic wound, present on admission. Wound bed has 100% brown scab. No odor, no drainage. Dry, stable. Asra-wound intact. Recommend continue: No dressing needed. Continue to monitor site q shift. Also recommend continue: Encourage and assist patient as needed with repositioning every two hours with pillow support, and off-load pressure areas with pillows for pressure re-distribution. Offload, elevate and float heel with pillows. Perform skin care and monitor skin integrity q shift. Use moisture barrier cream on buttocks, and other moisture susceptible areas qid and as needed for soiling. Wound Care Planning: Prevena Wound VAC and ACell was approved and ordered, but was not placed due to unable to obtain consent. Patient does not have capacity for consent at this time and there are no family members to give consent.
--- NOTE | 2020-03-21 16:30 | NUR ---
WOUND CARE PT STABLE. NOT IN ACUTE DISTRESS. RESTING COMFORTABLYPT IS YELLING AND SCRAMING ON AND OFF. CONTINUE ON SOFT WRIST RESTRAINTS. SKIN AND CIRCULATION WNL. WOUND CARE DONE WITH VILMA .PT TOLERATED WELL. SAFETY AND FALL PRECAUTIONS IN PLACE. WILL CONTINUE TO MONITOR
[2020-03-21 17:28] VITALS: BP_SYST 140
--- NOTE | 2020-03-21 18:20 | NUR ---
TRANSFERED PT TO [facility] PT TRANSFERED TO [facility] ORDERED. REPORT GIVEN TO STEPHANIE CASTLE IN [facility].IV LINE REMOVED .CLEAN DRESSING APPLIED. NO BLEEDING NOTED.ALL DISCHARGE PACKET /[phone] GIVEN TO [facility] EMT. ALL BELONGING SENT WITH AMULANCE.PT TRANSFERED IN STABLE CONDITION.
[2020-03-21] MEDS ORDERED: DOXYCYCLINE HYCLATE 100 MG CAPSULE PO SCH (21:00)
[2020-03-21] MEDS ORDERED: QUEtiapine FUMARATE 100 MG TABLET PO SCH (21:00)
== END 2020-03-21 18:20 | DRG 872 ==
LOC: SED 17:45 → SMU 22:32
PROVIDERS: ADMIT Internal Medicine; ATTEND Internal Medicine
PROC: 4A00X4Z Measurement of Central Nervous Electrical Activity, External Approach (ICD-10-PCS; principal; 2020-03-14)
DX: A41.9 Sepsis, unspecified organism (principal); L03.115 Cellulitis of right lower limb; N39.0 Urinary tract infection, site not specified; L97.919 Non-pressure chronic ulcer of unspecified part of right lower leg with unspecified severity; F23 Brief psychotic disorder; F17.210 Nicotine dependence, cigarettes, uncomplicated; F41.9 Anxiety disorder, unspecified; F25.0 Schizoaffective disorder, bipolar type; S81.801A Unspecified open wound, right lower leg, initial encounter; X58.XXXA Exposure to other specified factors, initial encounter; B96.89 Other specified bacterial agents as the cause of diseases classified elsewhere; I10 Essential (primary) hypertension; Z79.899 Other long term (current) drug therapy; Y93.89 Activity, other specified; Y92.89 Other specified places as the place of occurrence of the external cause; Y99.8 Other external cause status
CPT/HCPCS: 36415; 71045; 73590-TC; 80048; 80053; 80164-TC; 80307; 81000-TC; 82962; 83036; 83605; 84484; 85025; 85651-TC; 87040-TC; 87070-TC; 87081; 87086; 87186-TC; 93005; 96365; 96367; 96372; 99285; A6209; J0690; J0696; J1200; J1450; J1630; J1650; J1815; J2060; J3370; J7030; J7050; J7060